=== PATIENT | female | born 1975 | race Caucasian/White ===

== ENCOUNTER → 2023-07-01 12:44 | Outpatient (REF) | payer BC, SELFPAY | LOC: RCS 12:44 | PROVIDERS: ATTENDING PHYSICIAN Internal Medicine; FAMILY PHYSICIAN Family Medicine | DX: R07.9 Chest pain, unspecified (principal); Z82.49 Family history of ischemic heart disease and other diseases of the circulatory system; Z87.891 Personal history of nicotine dependence | CPT/HCPCS: 93017; 93350 ==

== ENCOUNTER → 2023-09-06 07:34 | Outpatient (REF) | payer BC, SELFPAY | LOC: WDC 07:34 | PROVIDERS: ATTENDING PHYSICIAN Obstetrics & Gynecology; FAMILY PHYSICIAN Family Medicine | DX: Z12.31 Encounter for screening mammogram for malignant neoplasm of breast (principal) | CPT/HCPCS: 77063; 77067 ==

== ENCOUNTER → 2024-01-19 06:20 | Outpatient (REF) | payer BC, SELFPAY ==
[2024-01-19 07:54] LABS: % Basophils 0.9 % (0-2); % Eosinophils 4.5 % (0-6); % Immature Granulocytes 0.3 % (0-0.5); % Lymphocytes 28.4 % (20.5-51.1); % Monocytes 9.4 % (1.7-9.3); % Neutrophils 56.5 % (42.2-75.2); Absolute Basophils 0.1 10^3/uL (0-0.2); Absolute Eosinophils 0.3 10^3/uL (0-0.7); Absolute Lymphocytes 1.8 10^3/uL (1.2-3.4); Absolute Monocytes 0.6 10^3/uL (0.1-0.6); Absolute Neutrophils 3.7 10^3/uL (1.4-6.5); Hematocrit 36.9 % (37.0-47.0); Hemoglobin 12.8 g/dL (12.0-16.0); Mean Corp Hgb Conc. 34.7 g/dL (33.0-37.0); Mean Corpuscular Volume 95.1 fL (81.0-99.0); Mean Platelet Volume 9.7 fL (7.4-10.4); Nucleated Red Blood Cells % 0 %; Platelet Count 349 10^3/uL (130-400); Red Blood Cell Count 3.88 10^6/uL (4.20-5.40); Red Cell Dist. Width 12.1 % (11.5-14.5); White Blood Cell Count 6.5 10^3/uL (4.8-10.8)
[2024-01-19 08:16] LABS: ALT (SGPT) 13 U/L (0-35); AST (SGOT) 21 U/L (14-36); Albumin 4.7 g/dl (3.5-5.0); Alkaline Phosphatase 74 U/L (38-126); Blood Urea Nitrogen 19 mg/dl (7-17); Calcium 9.6 mg/dl (8.4-10.2); Carbon Dioxide 23 mmol/L (22-30); Chloride 100 mmol/L (98-107); Glucose 91 mg/dl (70-99); HDL Cholesterol 63 mg/dl; LDL Cholesterol, Calculated 133 mg/dl; Potassium 4.2 mmol/L (3.5-5.1); Sodium 138 mmol/L (135-145); Total Bilirubin 0.3 mg/dl (0.2-1.3); Total Cholesterol 216 mg/dl (50-199); Total Protein 7.3 g/dl (6.3-8.2); Triglyceride 101 mg/dl (10-149); Very Low Density Lipoprotein 20 mg/dl (0-30); eGFR > 60.00
[2024-01-19 09:02] LABS: Vitamin D, 25-OH*** 26.8 ng/mL (30-80)
[2024-01-19 09:16] LABS: TSH Reflex To Free T4 4.92 uIU/ml (0.47-4.68)
[2024-01-19 09:18] LABS: Glycohemoglobin (HgbA1c) 5.2 % (4.0-5.6)
[2024-01-19 09:43] LABS: Free T4 1.04 ng/dl (0.78-2.19)
[2024-01-19 09:51] LABS: Folate 10.4 ng/ml (2.76-20); Vitamin B12 256 pg/ml (239-931)
== END ==
LOC: REG 06:20
PROVIDERS: ATTENDING PHYSICIAN Family Medicine
DX: Z00.00 Encounter for general adult medical examination without abnormal findings (principal); J30.89 Other allergic rhinitis; J30.2 Other seasonal allergic rhinitis; Z12.31 Encounter for screening mammogram for malignant neoplasm of breast; Z68.21 Body mass index [BMI] 21.0-21.9, adult; Z12.11 Encounter for screening for malignant neoplasm of colon; G43.009 Migraine without aura, not intractable, without status migrainosus; Z97.5 Presence of (intrauterine) contraceptive device
CPT/HCPCS: 36415; 80053; 80061; 82306; 82607; 82746; 83036; 84439; 84443; 85025

== ENCOUNTER → 2024-09-07 07:18 | Outpatient (REF) | payer BC, SELFPAY | LOC: WDC 07:18 | DX: Z12.31 Encounter for screening mammogram for malignant neoplasm of breast (principal) | CPT/HCPCS: 77063; 77067 ==

== ENCOUNTER → 2024-10-02 14:44 | Outpatient (REF) | payer BC, SELFPAY | LOC: HWRAD 14:44 | PROVIDERS: ATTENDING PHYSICIAN Otolaryngology | DX: H92.12 Otorrhea, left ear (principal); H71.12 Cholesteatoma of tympanum, left ear | CPT/HCPCS: 70480 ==

== ENCOUNTER → 2024-11-27 12:52 | Outpatient (REF) | payer BC, SELFPAY | LOC: RAD 12:52 | PROVIDERS: ATTENDING PHYSICIAN Obstetrics & Gynecology | DX: R10.2 Pelvic and perineal pain (principal) | CPT/HCPCS: 76830; 76856 ==

== ENCOUNTER → 2025-02-14 07:45 | Outpatient (REF) | payer BC, SELFPAY ==
[2025-02-14 08:14] LABS: Hematocrit 37.3 % (37.0-47.0); Hemoglobin 12.5 g/dL (12.0-16.0); Mean Corp Hgb Conc. 33.5 g/dL (33.0-37.0); Mean Corpuscular Volume 95.2 fL (81.0-99.0); Nucleated Red Blood Cells % 0 %; Platelet Count 272 10^3/uL (130-400); Red Cell Dist. Width 12.0 % (11.5-14.5)
[2025-02-14 08:33] LABS: INR 0.97; PT 13.4 Sec (11.4-14.6)
[2025-02-14 08:34] LABS: APTT 33.2 Sec (23.4-35.0)
[2025-02-14 08:51] LABS: ALT (SGPT) 19 U/L (0-35); AST (SGOT) 21 U/L (14-36); Albumin 4.9 g/dl (3.5-5.0); Alkaline Phosphatase 55 U/L (38-126); Blood Urea Nitrogen 13 mg/dl (7-17); Calcium 9.3 mg/dl (8.4-10.2); Carbon Dioxide 27 mmol/L (22-30); Chloride 103 mmol/L (98-107); Glucose 104 mg/dl (70-99); Potassium 3.8 mmol/L (3.5-5.1); Sodium 137 mmol/L (135-145); Total Protein 7.4 g/dl (6.3-8.2); eGFR > 60.00
== END ==
LOC: REG 07:45
DX: Z01.818 Encounter for other preprocedural examination (principal)
CPT/HCPCS: 36415; 80053; 85025; 85610; 85730